=== PATIENT | male | born 1945 | race Caucasian/White ===

== ENCOUNTER 2016-12-16 13:25 | Emergency (ER) | payer MEDICARE ==
[2016-12-16] MEDS ORDERED: ASPIRIN 81 MG CHEWABLE TABLET PO ONE (13:28)
[2016-12-16] MEDS ORDERED: 0.9 % SODIUM CHLORIDE 1,000 ML BAG IV ONE (13:30)
[2016-12-16] MEDS ORDERED: MAGNESIUM HYDROXIDE/AL HYDROX 10 ML, LIDOCAINE VISC 2% 200 MG, PHENOBARB/HYOSCY/ATROPIN... PO ONE ×3 (13:30)
--- NOTE | 2016-12-16 13:38 | Emergency Department Record ---
History of Present Illness - General Chief Complaint: Abdominal Pain Stated Complaint: CHEST AND BACK PAIN Time Seen by Provider: 12/16/16 13:27 Source: Patient Mode of Arrival: Ambulatory - History of Present Illness Initial Comments: epigastric abdominal pain and History of blood clots and on coumadin. Eating makes the epigastic pain worse and everynight for two week pain in the abdomin. CT of abd done at [facility] 2 weeks ago neg per patient. Patient has a history of vasquez's esophagitis. EGD scheduled for jun [address] Chirinos. The GI cocktail helped his pain. MD Complaint: Abdominal pain Onset/Timin -: Week(s) Location: Epigastric Radiation: Back Migration to: Other Severity: Mild Quality: Aching Consistency: Constant, Intermittent Improves With: Nothing Worsens With: Nothing Associated Symptoms: Diarrhea - Related Data Home Medications Medication Instructions Recorded Confirmed Last Taken Atenolol [Atenolol] 50 mg PO DAILY 10/15/15 12/16/16 12/16/16 Fluoxetine HCl [Fluoxetine HCl] 40 mg PO DAILY 10/15/15 12/16/16 12/16/16 Omeprazole [Prilosec] 20 mg PO DAILY 10/15/15 12/16/16 12/16/16 Warfarin Sodium [Coumadin] 2 mg PO DAILY 12/16/16 12/16/16 12/16/16 Allergies Allergy/AdvReac Type Severity Reaction Status Date / Time Iodine and Iodide Containing Allergy HYPERSENSIT Verified 12/16/16 13:35 Produc IVITY Travel Screening - Travel/Exposure Within Last 30 Days Have you traveled within the last 30 days?: No Review of Systems Reviewed: No additional complaints except as noted below Constitutional: Reports: As per HPI. Denies: Chills, Fever, Malaise, Night sweats, Weakness, Weight change Eyes: Reports: As per HPI. Denies: Eye discharge, Eye pain, Photophobia, Vision change ENT: Reports: As per HPI. Denies: Congestion, Dental pain, Ear pain, Epistaxis , Hearing loss, Throat pain Respiratory: Reports: As per HPI. Denies: Cough, Dyspnea, Hemoptysis, Stridor, Wheezes Cardiovascular: Reports: As per HPI. Denies: Arrhythmia, Chest pain, Dyspnea on exertion, Edema, Murmurs, Orthopnea, Palpitations, Paroxysmal nocturnal dyspnea, Rheumatic Fever, Syncope Endocrine: Reports: As per HPI. Denies: Fatigue, Heat or cold intolerance, Polydipsia, Polyuria Gastrointestinal: Reports: As per HPI, Abdominal pain. Denies: Constipation, Diarrhea, Hematemesis, Hematochezia, Melena, Nausea, Vomiting Genitourinary: Reports: As per HPI. Denies: Dysuria, Frequency, Hematuria, Incontinence, Retention, Testicular pain, Testicular mass, Urgency Musculoskeletal: Reports: As per HPI. Denies: Arthralgia, Back pain, Gout, Joint swelling, Myalgia, Neck pain Skin: Reports: As per HPI. Denies: Bruising, Change in color, Change in hair/ nails, Lesions, Pruritus, Rash Neurological: Reports: As per HPI. Denies: Abnormal gait, Confusion, Headache, Numbness, Paresthesias, Seizure, Tingling, Tremors, Vertigo, Weakness Psychiatric: Reports: As per HPI. Denies: Anxiety, Auditory hallucinations, Depression, Homicidal thoughts, Suicidal thoughts, Visual hallucinations Hematological/Lymphatic: Reports: As per HPI. Denies: Anemia, Blood Clots, Easy bleeding, Easy bruising, Swollen glands Past Medical History - SOCIAL HISTORY Smoking Status: Former smoker Alcohol Use: Rare Drug Use: None - RESPIRATORY Hx Respiratory Disorders: Yes Hx Pulmonary Embolism: Yes - CARDIOVASCULAR Hx Cardio Disorders: Yes Hx Deep Vein Thrombosis: Yes Hx Hypertension: Yes Comment:: PVD - NEURO Hx Neuro Disorders: No - GI Hx GI Disorders: Yes Hx Reflux: Yes Hx Hiatal Hernia: Yes Comment:: barretts disease - Hx Genitourinary Disorders: No - ENDOCRINE Hx Endocrine Disorders: No - MUSCULOSKELETAL Hx Musculoskeletal Disorders: Yes Hx Back Injury: Yes - PSYCH Hx Psych Problems: Yes Hx Depression: Yes - HEMATOLOGY/ONCOLOGY Hx Hematology/Oncology Disorders: Yes Hx Clotting Problems: Yes (frequent blood clots) Family Medical History Any Significant Family History?: Yes Hx Cancer: Father Hx Heart Disease: Mother, Brother/Sister Physical Exam - General General Appearance: Alert, Oriented x3, Cooperative, No acute distress - Head Head exam: Normal inspection - Eye Eye exam: Normal appearance, PERRL Pupils: Normal accommodation - ENT ENT exam: Normal exam, Mucous membranes moist, Normal external ear exam, Normal orophraynx, TM's normal bilaterally Ear exam: Normal external inspection. negative: External canal tenderness Nasal Exam: Normal inspection. negative: Discharge, Sinus tenderness Mouth exam: Normal external inspection, Tongue normal Teeth exam: Normal inspection. negative: Dental caries Throat exam: Normal inspection. negative: Tonsillar erythema, Tonsillar exudate - Neck Neck exam: Normal inspection, Full ROM. negative: Tenderness - Respiratory Respiratory exam: Normal lung sounds bilaterally. negative: Respiratory distress - Cardiovascular Cardiovascular Exam: Regular rate, Normal rhythm, Normal heart sounds - GI/Abdominal GI/Abdominal exam: Soft, Normal bowel sounds. negative: Tenderness - Rectal Rectal exam: Deferred - exam: Deferred - Extremities Extremities exam: Normal inspection, Full ROM, Normal capillary refill. negative: Tenderness - Back Back exam: Reports: Normal inspection, Full ROM. Denies: Muscle spasm, Rash noted, Tenderness - Neurological Neurological exam: Alert, Normal gait, Oriented X3, Reflexes normal - Psychiatric Psychiatric exam: Normal affect, Normal mood - Skin Skin exam: Dry, Intact, Normal color, Warm Course Vital Signs 12/16/16 13:27 Temperature 97.8 F Pulse Rate 60 Respiratory 20 Rate Blood Pressure 169/91 Pulse Ox 97 Medical Decision Making - Data Complexity MDM Data: EKG Ordered and/or Reviewed (nO ACUTE CHANGES, SAME PREVIOUS) - Lab Data Result diagrams: 12/16/16 13:34 12/16/16 13:34 Disposition Forms: Patient Portal Access
[2016-12-16 13:42] LABS: BASO % 0.1 % (0-6); EOS % 1.9 % (0-6); GRAN % 61.8 % (47-80); HEMATOCRIT 43.6 % (42.0-52.0); HEMOGLOBIN 14.7 gm/dl (14.0-18.0); LYMPH % 26.7 % (16-45); MEAN CORPUSCULAR HEMOGLOBIN 30.7 pg (27-33); MEAN CORPUSCULAR HGB CONC 33.7 g/dl (32-36); MEAN PLATELET VOLUME 10.4 fl (7.4-10.4); MONO % 9.5 % (0-9); PLATELET COUNT 264 K/uL (130-400); RED BLOOD COUNT 4.79 M/uL (4.40-5.70); RED CELL DISTRIBUTION WIDTH 12.1 % (11.5-14.5); WHITE BLOOD COUNT W/O DIFF 6.9 K/uL (4.2-12.2)
[2016-12-16 14:00] LABS: ALBUMIN 4.2 gm/dL (3.5-5.0); BILIRUBIN,TOTAL 0.9 mg/dL (0.2-1.3); TOTAL PROTEIN 7.3 gm/dL (6.3-8.2)
[2016-12-16 14:09] LABS: INR 2.3
[2016-12-16 14:17] LABS: ANION GAP 11.4 (7-16); BLOOD UREA NITROGEN 18 mg/dL (9-20); CARBON DIOXIDE 26.6 mmol/L (22-30); CREATININE 0.9 mg/dL (0.66-1.25); EST GLOMERULAR FILTRATION RATE > 60 ml/min; GLUCOSE,RANDOM 82 mg/dL (70-110)
[2016-12-16 14:29] LABS: CKMB 1.4 ug/L (0-6)
--- NOTE | 2016-12-16 14:30 | Emergency Department Record ---
History of Present Illness - General Chief Complaint: Abdominal Pain Stated Complaint: CHEST AND BACK PAIN Time Seen by Provider: 12/16/16 13:27 Source: Patient Mode of Arrival: Ambulatory - History of Present Illness MD Complaint: Abdominal pain Onset/Timin -: Week(s) Location: Epigastric Radiation: Back Migration to: Other Severity: Mild Quality: Aching Consistency: Constant, Intermittent Improves With: Nothing Worsens With: Nothing Associated Symptoms: Diarrhea - Related Data Home Medications Medication Instructions Recorded Confirmed Last Taken Atenolol [Atenolol] 50 mg PO DAILY 10/15/15 12/16/16 12/16/16 Fluoxetine HCl [Fluoxetine HCl] 40 mg PO DAILY 10/15/15 12/16/16 12/16/16 Omeprazole [Prilosec] 20 mg PO DAILY 10/15/15 12/16/16 12/16/16 Warfarin Sodium [Coumadin] 2 mg PO DAILY 12/16/16 12/16/16 12/16/16 Previous Rx's Medication Instructions Recorded Sucralfate [Carafate] 1 g PO QID #200 [facility] [place] 12/16/16 Allergies Allergy/AdvReac Type Severity Reaction Status Date / Time Iodine and Iodide Containing Allergy HYPERSENSIT Verified 12/16/16 13:35 Produc IVITY Travel Screening - Travel/Exposure Within Last 30 Days Have you traveled within the last 30 days?: No Review of Systems Constitutional: Reports: As per HPI. Denies: Chills, Fever, Malaise, Night sweats, Weakness, Weight change Eyes: Reports: As per HPI. Denies: Eye discharge, Eye pain, Photophobia, Vision change ENT: Reports: As per HPI. Denies: Congestion, Dental pain, Ear pain, Epistaxis , Hearing loss, Throat pain Respiratory: Reports: As per HPI. Denies: Cough, Dyspnea, Hemoptysis, Stridor, Wheezes Cardiovascular: Reports: As per HPI. Denies: Arrhythmia, Chest pain, Dyspnea on exertion, Edema, Murmurs, Orthopnea, Palpitations, Paroxysmal nocturnal dyspnea, Rheumatic Fever, Syncope Endocrine: Reports: As per HPI. Denies: Fatigue, Heat or cold intolerance, Polydipsia, Polyuria Gastrointestinal: Reports: As per HPI, Abdominal pain. Denies: Constipation, Diarrhea, Hematemesis, Hematochezia, Melena, Nausea, Vomiting Genitourinary: Reports: As per HPI. Denies: Dysuria, Frequency, Hematuria, Incontinence, Retention, Testicular pain, Testicular mass, Urgency Musculoskeletal: Reports: As per HPI. Denies: Arthralgia, Back pain, Gout, Joint swelling, Myalgia, Neck pain Skin: Reports: As per HPI. Denies: Bruising, Change in color, Change in hair/ nails, Lesions, Pruritus, Rash Neurological: Reports: As per HPI. Denies: Abnormal gait, Confusion, Headache, Numbness, Paresthesias, Seizure, Tingling, Tremors, Vertigo, Weakness Psychiatric: Reports: As per HPI. Denies: Anxiety, Auditory hallucinations, Depression, Homicidal thoughts, Suicidal thoughts, Visual hallucinations Hematological/Lymphatic: Reports: As per HPI. Denies: Anemia, Blood Clots, Easy bleeding, Easy bruising, Swollen glands Past Medical History - SOCIAL HISTORY Smoking Status: Former smoker Alcohol Use: Rare Drug Use: None - RESPIRATORY Hx Respiratory Disorders: Yes Hx Pulmonary Embolism: Yes - CARDIOVASCULAR Hx Cardio Disorders: Yes Hx Deep Vein Thrombosis: Yes Hx Hypertension: Yes Comment:: PVD - NEURO Hx Neuro Disorders: No - GI Hx GI Disorders: Yes Hx Reflux: Yes Hx Hiatal Hernia: Yes Comment:: barretts disease - Hx Genitourinary Disorders: No - ENDOCRINE Hx Endocrine Disorders: No - MUSCULOSKELETAL Hx Musculoskeletal Disorders: Yes Hx Back Injury: Yes - PSYCH Hx Psych Problems: Yes Hx Depression: Yes - HEMATOLOGY/ONCOLOGY Hx Hematology/Oncology Disorders: Yes Hx Clotting Problems: Yes (frequent blood clots) Family Medical History Any Significant Family History?: Yes Hx Cancer: Father Hx Heart Disease: Mother, Brother/Sister Physical Exam - General General Appearance: Alert, Oriented x3, Cooperative, No acute distress - Head Head exam: Normal inspection - Eye Eye exam: Normal appearance, PERRL Pupils: Normal accommodation - ENT ENT exam: Normal exam, Mucous membranes moist, Normal external ear exam, Normal orophraynx, TM's normal bilaterally Ear exam: Normal external inspection. negative: External canal tenderness Nasal Exam: Normal inspection. negative: Discharge, Sinus tenderness Mouth exam: Normal external inspection, Tongue normal Teeth exam: Normal inspection. negative: Dental caries Throat exam: Normal inspection. negative: Tonsillar erythema, Tonsillar exudate - Neck Neck exam: Normal inspection, Full ROM. negative: Tenderness - Respiratory Respiratory exam: Normal lung sounds bilaterally. negative: Respiratory distress - Cardiovascular Cardiovascular Exam: Regular rate, Normal rhythm, Normal heart sounds - GI/Abdominal GI/Abdominal exam: Soft, Normal bowel sounds, Tenderness (epigastric pain) - Rectal Rectal exam: Deferred - exam: Deferred - Extremities Extremities exam: Normal inspection, Full ROM, Normal capillary refill. negative: Tenderness - Back Back exam: Reports: Normal inspection, Full ROM. Denies: Muscle spasm, Rash noted, Tenderness - Neurological Neurological exam: Alert, Normal gait, Oriented X3, Reflexes normal - Psychiatric Psychiatric exam: Normal affect, Normal mood - Skin Skin exam: Dry, Intact, Normal color, Warm Course Vital Signs 12/16/16 13:27 Temperature 97.8 F Pulse Rate 60 Respiratory 20 Rate Blood Pressure 169/91 Pulse Ox 97 Medical Decision Making - Data Complexity MDM Data: Labs Ordered and/or Reviewed, EKG Ordered and/or Reviewed (No acute changes) - Lab Data Result diagrams: 12/16/16 13:34 12/16/16 13:34 Lab Results 12/16/16 12/16/16 12/16/16 Range/Units 13:34 13:34 13:34 WBC 6.9 (4.2-12.2) K/uL RBC 4.79 (4.40-5.70) M/uL Hgb 14.7 (14.0-18.0) gm/dl Hct 43.6 (42.0-52.0) % MCV 91.0 (81-97) fl MCH 30.7 (27-33) pg MCHC 33.7 (32-36) g/dl RDW 12.1 (11.5-14.5) % Plt Count 264 (130-400) K/uL MPV 10.4 (7.4-10.4) fl Gran % 61.8 (47-80) % Lymphocytes % 26.7 (16-45) % Monocytes % 9.5 H (0-9) % Eosinophils % 1.9 (0-6) % Basophils % 0.1 (0-6) % PT (9.5-12.1) SECONDS INR PTT 33.10 (24.5-39.1) SECONDS Sodium 139 (136-145) mmol/L Potassium 4.3 (3.5-5.1) mmol/L Chloride 101 (98-107) mmol/L Carbon Dioxide 26.6 (22-30) mmol/L Anion Gap 11.4 (7-16) BUN 18 (9-20) mg/dL Creatinine 0.9 (0.66-1.25) mg/dL Estimated GFR > 60 ml/min Random Glucose 82 (70-110) mg/dL Calcium 8.8 (8.5-10.1) mg/dL Total Bilirubin (0.2-1.3) mg/dL Direct Bilirubin (0-0.3) mg/dL AST (17-59) U/L ALT (21-72) U/L Alkaline Phosphatase (38-126) U/L Total Protein (6.3-8.2) gm/dL Albumin (3.5-5.0) gm/dL Lipase (23-300) U/L 12/16/16 12/16/16 Range/Units 13:34 13:35 WBC (4.2-12.2) K/uL RBC (4.40-5.70) M/uL Hgb (14.0-18.0) gm/dl Hct (42.0-52.0) % MCV (81-97) fl MCH (27-33) pg MCHC (32-36) g/dl RDW (11.5-14.5) % Plt Count (130-400) K/uL MPV (7.4-10.4) fl Gran % (47-80) % Lymphocytes % (16-45) % Monocytes % (0-9) % Eosinophils % (0-6) % Basophils % (0-6) % PT 26.0 H (9.5-12.1) SECONDS INR 2.30 PTT (24.5-39.1) SECONDS Sodium (136-145) mmol/L Potassium (3.5-5.1) mmol/L Chloride (98-107) mmol/L Carbon Dioxide (22-30) mmol/L Anion Gap (7-16) BUN (9-20) mg/dL Creatinine (0.66-1.25) mg/dL Estimated GFR ml/min Random Glucose (70-110) mg/dL Calcium (8.5-10.1) mg/dL Total Bilirubin 0.90 (0.2-1.3) mg/dL Direct Bilirubin 0.0 (0-0.3) mg/dL AST 20 (17-59) U/L ALT 26 (21-72) U/L Alkaline Phosphatase 68 (38-126) U/L Total Protein 7.3 (6.3-8.2) gm/dL Albumin 4.2 (3.5-5.0) gm/dL Lipase 147 (23-300) U/L Disposition Clinical Impression: Gastritis, Esophagitis Disposition: Home, Self-Care Condition: (1) Good Instructions: Gastritis (ED) Additional Instructions: follow up with Dr. rebecca palomo 2 tablespoon after meals and at bedtime Prescriptions: Sucralfate [Carafate] 1 g PO QID #200 [facility] Forms: Patient Portal Access Time of Disposition: 14:30
[2016-12-16 14:31] LABS: TROPONIN I < 0.012 ng/mL (0.00-0.034)
== END 2016-12-16 14:49 | disposition home or self-care (01) ==
LOC: ER 13:25
DX: K20.9 Esophagitis, unspecified (principal); K22.70 Barrett's esophagus without dysplasia; R19.7 Diarrhea, unspecified; R07.9 Chest pain, unspecified; I10 Essential (primary) hypertension; Z86.718 Personal history of other venous thrombosis and embolism; Z79.01 Long term (current) use of anticoagulants; Z87.891 Personal history of nicotine dependence
CPT/HCPCS: 99284 ×2; 96360; 83690; 85025; 85730; 85610; 80076; 82553; 84484; 80048; 93005; 93010; J3490; J7030

== ENCOUNTER 2017-02-07 11:06 | Emergency (ER) | payer MEDICARE ==
--- NOTE | 2017-02-07 11:31 | Emergency Department Record ---
History of Present Illness - General Chief complaint: Male Urogenital Problem Stated complaint: BLOOD IN URINE Time Seen by Provider: 02/07/17 11:28 Source: Patient Mode of Arrival: Ambulatory - History of Present Illness Initial comments: 72 yo male presents to ED with a CC of hematuria that began around 19:00 last night. Patient denies any dysuria symptoms, denies any injury. Patient reports that he is on warfarin for previous DVT/PE, last level 4 days ago was 3.5. Patient denies excess bruising or bleeding gums. MD Complaint: Other (hematuria) Onset/Timin -: Hour(s) Radiation: None Consistency: Intermittent Improves with: None Worsens with: None Other Reports: Blood in urine - Related Data Home Medications Medication Instructions Recorded Confirmed Last Taken Atenolol [Atenolol] 50 mg PO DAILY 10/15/15 02/07/17 02/07/17 Fluoxetine HCl [Fluoxetine HCl] 40 mg PO DAILY 10/15/15 02/07/17 02/07/17 Omeprazole [Prilosec] 40 mg PO DAILY 10/15/15 02/07/17 02/07/17 Warfarin Sodium [Coumadin] 2 mg PO DAILY 12/16/16 02/07/17 02/07/17 Previous Rx's Medication Instructions Recorded Sucralfate [Carafate] 1 g PO QID #200 [facility] 12/16/16 Cephalexin [Keflex] 500 mg PO TID #21 cap 02/07/17 Allergies Allergy/AdvReac Type Severity Reaction Status Date / Time Iodine and Iodide Containing Allergy HYPERSENSIT Verified 02/07/17 11:10 Produc IVITY Travel Screening - Travel/Exposure Within Last 30 Days Have you traveled within the last 30 days?: No - Travel/Exposure Within Last Year Have you traveled outside the [place] in the last year?: No - Additonal Travel Details Have you been exposed to anyone with a communicable illness?: No - Travel Symptoms Symptom Screening: None Review of Systems Constitutional: Denies: Chills, Fever, Malaise, Night sweats Eyes: Denies: Eye discharge, Eye pain ENT: Denies: Congestion, Ear pain Respiratory: Denies: Cough, Dyspnea Cardiovascular: Denies: Chest pain, Dyspnea on exertion, Palpitations Endocrine: Denies: Fatigue, Heat or cold intolerance Gastrointestinal: Denies: Abdominal pain, Nausea, Vomiting Genitourinary: Denies: Incontinence, Retention Musculoskeletal: Denies: Arthralgia, Back pain, Gout, Joint swelling Skin: Denies: Bruising, Change in color Neurological: Denies: Abnormal gait, Confusion, Headache, Seizure Psychiatric: Denies: Anxiety Hematological/Lymphatic: Reports: Blood Clots, Easy bleeding. Denies: Anemia Past Medical History - SOCIAL HISTORY Smoking Status: Former smoker Alcohol Use: Occassional Drug Use: None - RESPIRATORY Hx Respiratory Disorders: Yes Hx Pulmonary Embolism: Yes - CARDIOVASCULAR Hx Cardio Disorders: Yes Hx Deep Vein Thrombosis: Yes Hx Hypertension: Yes Comment:: PVD - NEURO Hx Neuro Disorders: No - GI Hx GI Disorders: Yes Hx Reflux: Yes Hx Hiatal Hernia: Yes Comment:: barretts disease - Hx Genitourinary Disorders: No - ENDOCRINE Hx Endocrine Disorders: No - MUSCULOSKELETAL Hx Musculoskeletal Disorders: Yes Hx Back Injury: Yes - PSYCH Hx Psych Problems: Yes Hx Depression: Yes - HEMATOLOGY/ONCOLOGY Hx Hematology/Oncology Disorders: Yes Hx Clotting Problems: Yes (frequent blood clots) Family Medical History Any Significant Family History?: Yes Hx Cancer: Father Hx Heart Disease: Mother, Brother/Sister Physical Exam - General General Appearance: Alert, Oriented x3, Cooperative, No acute distress Limitations: No limitations - Head Head exam: Atraumatic, Normocephalic, Normal inspection Head exam detail: negative: Abrasion, Contusion, Boland's sign, General tenderness, Hematoma, Laceration - Eye Eye exam: Normal appearance. negative: Conjunctival injection, Periorbital swelling, Periorbital tenderness, Scleral icterus - ENT Ear exam: negative: Auricular hematoma, Auricular trauma Nasal Exam: negative: Active bleeding, Discharge, Dried blood, Foreign body Mouth exam: negative: Drooling, Laceration, Muffled voice, Tongue elevation - Neck Neck exam: Normal inspection. negative: Meningismus, Tenderness - Respiratory Respiratory exam: Normal lung sounds bilaterally. negative: Rales, Respiratory distress, Rhonchi, Stridor - Cardiovascular Cardiovascular Exam: Regular rate, Normal rhythm, Normal heart sounds - GI/Abdominal GI/Abdominal exam: Soft. negative: Rebound, Rigid, Tenderness - Rectal Rectal exam: Deferred - exam: Deferred - Extremities Extremities exam: Normal inspection. negative: Calf tenderness, Pedal edema, Tenderness - Back Back exam: Denies: CVA tenderness (R), CVA tenderness (L) - Neurological Neurological exam: Alert, Normal gait, Oriented X3 - Psychiatric Psychiatric exam: Normal affect, Normal mood - Skin Skin exam: Normal color. negative: Abrasion Type of lesion: negative: abrasion Course Vital Signs 02/07/17 11:14 Pulse Rate 58 L Respiratory 16 Rate Pulse Ox 98 - Reevaluation(s) Reevaluation #1: 02/07/17 12:17 Labs reviewed, INR 3.08, UA reveals 1+ Bacteria, 3-5 WBCs, and >50 RBCs. Labs are otherwise grossly unremarkable for an acute process. Patient's Hgb stable, will prescribe Keflex for possible small UTI resulting in possible hematuria with instructions to follow-up with his PCP in 1-3 days as directed. Patient denies any flank or back pain symptoms, no clinical evidence for ureteral calculi on history or examination. Patient was updated on all results and appears stable for discharge at this time. Medical Decision Making - Lab Data Result diagrams: 02/07/17 11:49 02/07/17 11:49 Disposition Disposition: Discharge Clinical Impression: Hematuria, Warfarin-induced coagulopathy UTI (urinary tract infection) Qualifiers: Urinary tract infection type: acute cystitis Hematuria presence: with hematuria Qualified Code(s): N30.01 - Acute cystitis with hematuria Disposition: Home, Self-Care Condition: (2) Stable Instructions: Acute Hematuria (ED) Additional Instructions: Return to ED if your symptoms worsen or if you have any concerns. Keflex as directed. Follow-up with your family doctor in 1-3 days for re-evaluation of your hematuria symptoms. Prescriptions: Cephalexin [Keflex] 500 mg PO TID #21 cap Forms: Patient Portal Access Time of Disposition: 12:22
[2017-02-07 11:58] LABS: BASO % 0.5 % (0-6); EOS % 1.8 % (0-6); GRAN % 62.5 % (47-80); HEMATOCRIT 43.9 % (42.0-52.0); HEMOGLOBIN 14.5 gm/dl (14.0-18.0); LYMPH % 27.4 % (16-45); MEAN CELL VOLUME 90.5 fl (81-97); MEAN CORPUSCULAR HEMOGLOBIN 29.9 pg (27-33); MEAN PLATELET VOLUME 10.7 fl (7.4-10.4); MONO % 7.8 % (0-9); PLATELET COUNT 299 K/uL (130-400); RED BLOOD COUNT 4.85 M/uL (4.40-5.70); RED CELL DISTRIBUTION WIDTH 12.2 % (11.5-14.5); WHITE BLOOD COUNT W/O DIFF 5.5 K/uL (4.2-12.2)
[2017-02-07 12:03] LABS: URINE APPEARANCE SL CLOUDY; URINE BILIRUBIN NEGATIVE (NEGATIVE); URINE BLOOD LARGE (NEGATIVE); URINE COLOR RED; URINE GLUCOSE (UA) NEGATIVE (NEGATIVE); URINE KETONE TRACE (NEGATIVE); URINE LEUKOCYTE ESTERASE TRACE (NEGATIVE); URINE NITRITE POSITIVE (NEGATIVE)
[2017-02-07 12:07] LABS: ALB/GLOB RATIO 1.3 (1.1-1.8); ALBUMIN 4.4 gm/dL (3.5-5.0); ALKALINE PHOSPHATASE 89 U/L (38-126); ALT/SGPT 34 U/L (21-72); AST/SGOT 27 U/L (17-59); BILIRUBIN,TOTAL 0.68 mg/dL (0.2-1.3); BLOOD UREA NITROGEN 28 mg/dL (9-20); CREATININE 0.9 mg/dL (0.66-1.25); EST GLOMERULAR FILTRATION RATE > 60 ml/min; GLUCOSE,RANDOM 116 mg/dL (70-110); INR 3.08; PROTHROMBIN TIME (PATIENT) 34.8 SECONDS (9.5-12.1); TOTAL PROTEIN 7.7 gm/dL (6.3-8.2)
[2017-02-07 12:13] LABS: URINE RBC >50 (NONE SEEN)
[2017-02-07 12:14] LABS: URINE BACTERIA 1+; URINE EPITHELIAL CELLS 0 - 2 (FEW)
== END 2017-02-07 12:31 | disposition home or self-care (01) ==
LOC: ER 11:06
DX: D68.32 Hemorrhagic disorder due to extrinsic circulating anticoagulants (principal); N30.01 Acute cystitis with hematuria; T45.515A Adverse effect of anticoagulants, initial encounter; I10 Essential (primary) hypertension; Z87.891 Personal history of nicotine dependence; Z86.711 Personal history of pulmonary embolism
CPT/HCPCS: 80053; 81001; 85025; 85610; 99283

== ENCOUNTER 2017-04-01 23:10 | Emergency (ER) | payer MEDICARE ==
[2017-04-01] MEDS ORDERED: ACETAMINOPHEN 1,000 MG/100 ML BTL IVPB ONE (23:16)
[2017-04-01] MEDS ORDERED: LIDOCAINE 5% PATCH TOP ONE (23:21)
--- NOTE | 2017-04-01 23:22 | Emergency Department Record ---
History of Present Illness - General Chief Complaint: Fall Injury Source: Patient, Family Mode of Arrival: Ambulatory Limitations: No limitations - History of Present Illness Initial Comments: 72 yo male presents with right mid upper rib pain. At about 8:30pm he was golfing and lost his balance on uneven green and fell. He complains of right upper rib pain, right thigh pain, and right knee abrasion. No head injury but he is on Coumadin. No abdominal pain. No back pain. MD Complaint: Fall -: Hour(s) (3) Fall From: Other (uneven green at a golf course) When Fall Occurred: 1-3 hours PATTERN HAND Fall Witnessed: Yes, by bystander Place Fall Occurred: Other (Golf course) Loss of Consciousness: None Prolonged Down Time?: No Symptoms Prior to Fall: None Location: Other (right ribs, right upper leg) Location - Extremities: Right: Thigh Severity: Moderate Quality: Aching Associated Symptoms: Denies - [place] Coma Scale Eye Response: (4) Open spontaneously Motor Response: (6) Obeys commands Verbal Response: (5) Oriented [place] Total: 15 - Related Data Home Medications Medication Instructions Recorded Confirmed Last Taken Atenolol [Atenolol] 50 mg PO DAILY 10/15/15 02/07/17 02/07/17 Fluoxetine HCl [Fluoxetine HCl] 40 mg PO DAILY 10/15/15 02/07/17 02/07/17 Omeprazole [Prilosec] 40 mg PO DAILY 10/15/15 02/07/17 02/07/17 Warfarin Sodium [Coumadin] 2 mg PO DAILY 12/16/16 02/07/17 02/07/17 Previous Rx's Medication Instructions Recorded Sucralfate [Carafate] 1 g PO QID #200 udc 12/16/16 Cephalexin [Keflex] 500 mg PO TID #21 cap 02/07/17 Hydrocodone/Acetaminophen [[place] 1 tab PO Q6H PRN #25 tab 04/02/17 5mg/325mg] Lidocaine Patch [Lidoderm] 1 ea TOP Q12H #14 patch 04/02/17 Allergies Allergy/AdvReac Type Severity Reaction Status Date / Time Iodine and Iodide Containing Allergy HYPERSENSIT Verified 02/07/17 11:10 Produc IVITY meperidine [From Demerol] Allergy PT UNSURE Verified 04/01/17 23:17 OF REACTION morphine Allergy PT UNSURE Verified 04/01/17 23:16 OF REACTION Review of Systems Constitutional: Denies: Chills, Fever, Malaise, Weakness Eyes: Denies: Eye discharge, Eye pain, Photophobia, Vision change ENT: Denies: Congestion, Throat pain Respiratory: Denies: Cough, Dyspnea, Hemoptysis, Stridor, Wheezes Cardiovascular: Reports: Chest pain (right ribs). Denies: Syncope Endocrine: Denies: Fatigue Gastrointestinal: Denies: Abdominal pain, Diarrhea, Nausea, Vomiting Genitourinary: Denies: Hematuria, Urgency Musculoskeletal: Reports: As per HPI, Myalgia. Denies: Arthralgia, Back pain, Joint swelling, Neck pain Skin: Reports: As per HPI, Bruising. Denies: Change in color Neurological: Denies: Headache Psychiatric: Denies: Anxiety Hematological/Lymphatic: Denies: Blood Clots, Easy bleeding, Easy bruising, Swollen glands Past Medical History - SOCIAL HISTORY Smoking Status: Former smoker Drug Use: None - RESPIRATORY Hx Respiratory Disorders: Yes Hx Pulmonary Embolism: Yes - CARDIOVASCULAR Hx Cardio Disorders: Yes Hx Deep Vein Thrombosis: Yes Hx Hypertension: Yes Comment:: PVD - NEURO Hx Neuro Disorders: No - GI Hx GI Disorders: Yes Hx Reflux: Yes Hx Hiatal Hernia: Yes Comment:: barretts disease - Hx Genitourinary Disorders: No - ENDOCRINE Hx Endocrine Disorders: No - MUSCULOSKELETAL Hx Musculoskeletal Disorders: Yes Hx Back Injury: Yes - PSYCH Hx Psych Problems: Yes Hx Depression: Yes - HEMATOLOGY/ONCOLOGY Hx Hematology/Oncology Disorders: Yes Hx Clotting Problems: Yes (frequent blood clots) Family Medical History Hx Cancer: Father Hx Heart Disease: Mother, Brother/Sister Physical Exam - General General Appearance: Alert, Oriented x3, Cooperative, No acute distress Limitations: No limitations - Head Head exam: Atraumatic, Normocephalic, Normal inspection Head exam detail: negative: Abrasion, Contusion, Hematoma, Laceration - Eye Eye exam: Normal appearance. negative: Conjunctival injection, Periorbital swelling - ENT ENT exam: Normal exam, Mucous membranes moist Ear exam: Normal external inspection Nasal Exam: Normal inspection Mouth exam: Normal external inspection Teeth exam: Normal inspection - Neck Neck exam: Normal inspection, Full ROM. negative: Meningismus, Tenderness - Respiratory Respiratory exam: Normal lung sounds bilaterally, Chest wall tenderness (tender mid to upper right), Other (Pain movement, mild if still). negative: Accessory muscle use, Decreased breath sounds, Prolonged expiratory, Rales, Respiratory distress, Rhonchi, Stridor, Wheezes - Cardiovascular Cardiovascular Exam: Regular rate, Normal rhythm, Normal heart sounds - GI/Abdominal GI/Abdominal exam: Soft, Other (No abdominal tenderness, no RUQ tenderness). negative: Distended, Guarding, Rigid, Tenderness - Rectal Rectal exam: Deferred - exam: Deferred - Extremities Extremities exam: Full ROM, Normal capillary refill, Tenderness (Small contusion right mid to distal lateral thigh). negative: Normal inspection, Calf tenderness Image of Full Body: 1 - tender to palpation, no deformity or SQ air, no RUQ tenderness to deep palpation 2 - small hematorma, soft, (weight bears without pain) 3 - abrasion - Back Back exam: Reports: Normal inspection, Full ROM. Denies: CVA tenderness (R), CVA tenderness (L), Muscle spasm, Paraspinal tenderness, Rash noted, Tenderness , Vertebral tenderness - Neurological Neurological exam: Alert, Normal gait, Oriented X3, Reflexes normal - Psychiatric Psychiatric exam: Normal affect, Normal mood. negative: Agitated, Anxious - Skin Skin exam: Dry, Intact, Normal color, Warm. negative: Cyanosis, Diaphoretic, Erythema, Mottled Course - Reevaluation(s) Reevaluation #1: CT of the brain was normal per [facility] CT of the chest was negative for evidence of acute injury. No displaced rib fractures CT scan of the Cervical spine no fracture, straightening noted, degenerative changes C4-C5-C6 04/02/17 00:06 Reevaluation #2: INR is 2.15 CR is 1.5 The patient was informed to hydrate and recheck the renal labs with his doctor in the next week 04/02/17 00:20 Reevaluation #3: We discussed the results and reasons to return to the ED At this time room air biox is 100%, HR 62, BP 123/84 04/02/17 00:28 Medical Decision Making - Lab Data Result diagrams: 04/01/17 23:25 04/01/17 23:25 Disposition Disposition: Discharge Clinical Impression: Contusion of rib on right side Qualifiers: Encounter type: initial encounter Qualified Code(s): S20.211A - Contusion of right front wall of thorax, initial encounter Hematoma of right thigh Qualifiers: Encounter type: initial encounter Qualified Code(s): S70.11XA - Contusion of right thigh, initial encounter Disposition: Home, Self-Care Condition: (1) Good Instructions: Rib Contusion (ED) Additional Instructions: Ice to the sore areas to minimize swelling Call your doctor for close follow up of the injuries Return if you have shortness of breath, uncontrolled pain levels, any new pains or concerns Prescriptions: Hydrocodone/Acetaminophen [[place] 5mg/325mg] 1 tab PO Q6H PRN #25 tab PRN Reason: Pain - General Lidocaine Patch [Lidoderm] 1 ea TOP Q12H #14 patch Forms: Patient Portal Access Time of Disposition: 00:21
[2017-04-01 23:36] LABS: BASO % 0.2 % (0-6); EOS % 1.7 % (0-6); GRAN % 64.1 % (47-80); HEMATOCRIT 39.4 % (42.0-52.0); HEMOGLOBIN 13.2 gm/dl (14.0-18.0); MEAN CELL VOLUME 90.6 fl (81-97); MEAN CORPUSCULAR HEMOGLOBIN 30.3 pg (27-33); MEAN CORPUSCULAR HGB CONC 33.5 g/dl (32-36); MEAN PLATELET VOLUME 10.7 fl (7.4-10.4); PLATELET COUNT 295 K/uL (130-400); RED BLOOD COUNT 4.35 M/uL (4.40-5.70); RED CELL DISTRIBUTION WIDTH 12.5 % (11.5-14.5); WHITE BLOOD COUNT W/O DIFF 9.8 K/uL (4.2-12.2)
[2017-04-01 23:43] LABS: INR 2.15; PARTIAL THROMBOPLASTIN TIME 31.8 SECONDS (24.5-39.1); PROTHROMBIN TIME (PATIENT) 24.3 SECONDS (9.5-12.1)
[2017-04-01 23:44] LABS: ALB/GLOB RATIO 1.2 (1.1-1.8); ALBUMIN 4.3 gm/dL (3.5-5.0); ANION GAP 7.5 (7-16); BILIRUBIN,TOTAL 0.53 mg/dL (0.2-1.3); CARBON DIOXIDE 26.5 mmol/L (22-30); CREATININE 1.5 mg/dL (0.66-1.25); TOTAL PROTEIN 7.8 gm/dL (6.3-8.2)
[2017-04-02] MEDS ORDERED: HYDROCODONE/APAP 10/325 TABLET PO ONE (00:26)
--- NOTE | 2017-04-04 16:27 | CT SCAN REPORT ---
DATE: 04/02/2017. EXAM: CT SCAN OF THE CERVICAL SPINE. HISTORY: Neck pain. TECHNIQUE: Axial CT images of the cervical spine with coronal and sagittal reconstructions. COMPARISON: None. FINDINGS: Evaluation of the spinal canal contents is limited due to CT technique. However, vertebral body height and alignment are preserved. There is no fracture/compression deformity or subluxation. Diffuse multilevel degenerative change. Limited evaluation of extraspinal anatomic structures is unremarkable. IMPRESSION: NEGATIVE FOR ACUTE CERVICAL SPINE ABNORMALITY. JOB NUMBER: [id number] [facility]
--- NOTE | 2017-04-04 16:31 | CT SCAN REPORT ---
DATE: 04/01/2017. EXAM: CT SCAN OF THE CHEST WITHOUT CONTRAST. HISTORY: Fall. TECHNIQUE: CT of the chest without contrast. COMPARISON: None. FINDINGS: Evaluation of the mediastinum and wendy are limited due to lack of IV contrast. Calcified mediastinal lymph nodes. The heart and pericardium are grossly unremarkable. Limited evaluation of the upper abdomen shows multiple renal cysts. Osseus structures are grossly intact. There is no pneumothorax. The visualized airways are patent. The lungs are clear. IMPRESSION: NEGATIVE FOR ACUTE INTRATHORACIC PROCESS. JOB NUMBER: [id number] [facility]
--- NOTE | 2017-04-04 16:36 | CT SCAN REPORT ---
DATE: 04/01/2017. EXAM: CT SCAN OF THE BRAIN. HISTORY: Fall. TECHNIQUE: CT scan of the brain without contrast. COMPARISON: None. FINDINGS: The globes are intact. The paranasal sinuses and mastoid air cells are unremarkable. No displaced or depressed skull fracture. No intra- or extra -axial hemorrhage. CT is limited for the evaluation of acute infarct. No CT evidence for large or territorial acute infarct. No mass or midline shift. IMPRESSION: NEGATIVE EXAMINATION. JOB NUMBER: [id number] [facility]
== END 2017-04-02 00:52 | disposition home or self-care (01) ==
LOC: ER 23:10
DX: S20.211A Contusion of right front wall of thorax, initial encounter (principal); S70.11XA Contusion of right thigh, initial encounter; T14.8 Other injury of unspecified body region; W18.39XA Other fall on same level, initial encounter; Y93.01 Activity, walking, marching and hiking; Y92.39 Other specified sports and athletic area as the place of occurrence of the external cause; I10 Essential (primary) hypertension
CPT/HCPCS: 99284 ×2; 96374; 85025; 85730; 85610; 80053; 72125; 71250; 70450; J3490

== ENCOUNTER 2019-10-23 12:01 | Emergency (ER) | payer MEDICARE ==
[2019-10-23 13:06] LABS: URINE APPEARANCE CLOUDY; URINE BILIRUBIN SMALL (NEGATIVE); URINE BLOOD LARGE (NEGATIVE); URINE COLOR RED; URINE GLUCOSE (UA) NEGATIVE (NEGATIVE); URINE KETONE NEGATIVE (NEGATIVE); URINE LEUKOCYTE ESTERASE NEGATIVE (NEGATIVE); URINE NITRITE NEGATIVE (NEGATIVE)
[2019-10-23 13:08] LABS: URINE BACTERIA NONE SEEN; URINE EPITHELIAL CELLS NONE SEEN (FEW); URINE WBC NONE SEEN (0-2/hpf)
--- NOTE | 2019-10-23 13:19 | Emergency Department Record ---
History of Present Illness - General Chief complaint: Male Urogenital Problem Stated complaint: PEEING BLOOD Time Seen by Provider: 10/23/19 13:02 Source: Patient Mode of Arrival: Ambulatory Limitations: No limitations - History of Present Illness Initial comments: pt started urinating blood this morning. he is on coumadin. he has had this happen twice before. he has never seen a urologist. he has no pain MD Complaint: Other Onset/Timin -: Days(s) Consistency: Intermittent Improves with: None Worsens with: Urination Reports: Blood in urine - Related Data Previous Rx's Medication Instructions Recorded Sucralfate [Carafate] 1 g PO QID #200 udc 12/16/16 Hydrocodone/Acetaminophen [[place] 1 tab PO Q6H PRN #25 tab 04/02/17 5mg/325mg] Lidocaine Patch [Lidoderm] 1 ea TOP Q12H #14 patch 04/02/17 Allergies Allergy/AdvReac Type Severity Reaction Status Date / Time Iodine and Iodide Containing Allergy HYPERSENSIT Verified 10/23/19 12:49 Produc IVITY meperidine [From Demerol] Allergy PT UNSURE Verified 10/23/19 12:49 OF REACTION morphine Allergy PT UNSURE Verified 10/23/19 12:49 OF REACTION Travel Screening - Travel/Exposure Within Last 30 Days Have you traveled within the last 30 days?: No Past Medical History - SOCIAL HISTORY Smoking Status: Former smoker Alcohol Use: None Drug Use: None - RESPIRATORY Hx Respiratory Disorders: Yes Hx Pulmonary Embolism: Yes - CARDIOVASCULAR Hx Cardio Disorders: Yes Hx Deep Vein Thrombosis: Yes Hx Hypertension: Yes Comment:: PVD - NEURO Hx Neuro Disorders: No - GI Hx GI Disorders: Yes Hx Reflux: Yes Hx Hiatal Hernia: Yes Comment:: barretts disease - Hx Genitourinary Disorders: No - ENDOCRINE Hx Endocrine Disorders: No - MUSCULOSKELETAL Hx Musculoskeletal Disorders: Yes Hx Back Injury: Yes - PSYCH Hx Psych Problems: Yes Hx Depression: Yes - HEMATOLOGY/ONCOLOGY Hx Hematology/Oncology Disorders: Yes Hx Clotting Problems: Yes (frequent blood clots) Family Medical History Any Significant Family History?: Yes Hx Cancer: Father Hx Heart Disease: Mother, Brother/Sister Course Vital Signs 10/23/19 12:46 Temperature 97.5 F L Pulse Rate 57 L Respiratory 20 Rate Blood Pressure 134/83 Pulse Ox 94 L - Reevaluation(s) Reevaluation #1: 10/23/19 17:51 d/w dr wood Medical Decision Making - Lab Data Result diagrams: 10/23/19 13:05 10/23/19 13:05 Lab Results 10/23/19 Range/Units 12:50 Urine Color Red H Urine Appearance Cloudy Urine pH 7.0 (5.0-8.0) Ur Specific [place] 1.020 (1.002-1.030) Urine Protein 100 mg/dl H (NEGATIVE) Urine Glucose (UA) Negative (NEGATIVE) Urine Ketones Negative (NEGATIVE) Urine Blood Large H (NEGATIVE) Urine Nitrite Negative (NEGATIVE) Urine Bilirubin Small H (NEGATIVE) Urine Urobilinogen 1.0 (0.20 - 1.00) E.U./dL Ur Leukocyte Esterase Negative (NEGATIVE) Urine RBC Too numerous to cnt (NONE SEEN) Urine WBC None seen (0-2/hpf) Ur Epithelial Cells None seen (FEW) Urine Bacteria None seen Disposition Disposition: Discharge Clinical Impression: Mass of kidney Hematuria Qualifiers: Hematuria type: unspecified type Qualified Code(s): R31.9 - Hematuria, unspecified Disposition: Home, Self-Care Condition: (1) Good Instructions: Hematuria (ED) Additional Instructions: follow up with dr wood on 10/31. return sooner if worse. Referrals: [facility] [Provider Group] Dane Wood M.D. [MEDICAL DOCTOR] - Forms: Patient Portal Access Quality - Quality Measures Quality Measures: N/A - Blood Pressure Screening Does Patient Have Any of the Following: No Blood Pressure Classification: Pre-Hypertensive BP Reading Systolic Measurement: 134 Diastolic Measurement: 83 Screening for High Blood Pressure: < Pre-Hypertensive BP, F/U Documented > [[id number]] Pre-Hypertensive Follow-up Interventions: Follow-up with rescreen every year.
[2019-10-23 13:23] LABS: ABSOLUTE NEUTROPHIL COUNT 3.14; BASO % 0.5 % (0-6); EOS % 2.7 % (0-6); GRAN % 57.5 % (47-80); HEMATOCRIT 43.3 % (42.0-52.0); HEMOGLOBIN 14.4 gm/dl (14.0-18.0); LYMPH % 29.6 % (16-45); MEAN CELL VOLUME 91.4 fl (81-97); MEAN CORPUSCULAR HEMOGLOBIN 30.4 pg (27-33); MEAN CORPUSCULAR HGB CONC 33.3 g/dl (32-36); MEAN PLATELET VOLUME 10.5 fl (7.4-10.4); MONO % 9.7 % (0-9); PLATELET COUNT 266 K/uL (130-400); RED BLOOD COUNT 4.74 M/uL (4.40-5.70); RED CELL DISTRIBUTION WIDTH 12.7 % (11.5-14.5); WHITE BLOOD COUNT W/O DIFF 5.5 K/uL (4.2-12.2)
[2019-10-23 13:34] LABS: BLOOD UREA NITROGEN 24 mg/dL (8-23); CREATININE 1.1 mg/dL (0.7-1.2); EST GLOMERULAR FILTRATION RATE > 60 mL/min
[2019-10-23 13:36] LABS: INR 2.5; PROTHROMBIN TIME (PATIENT) 24.8 SECONDS (9.5-12.1)
[2019-10-23 13:37] LABS: GLUCOSE,RANDOM 116 mg/dL (74-109)
--- NOTE | 2019-10-23 15:27 | CT SCAN REPORT ---
EXAMINATION: CT Abdomen and Pelvis without IV Contrast EXAM DATE: 10/23/2019 2:52 PM TECHNIQUE: Standard protocol CT imaging of the abdomen and pelvis was performed without intravenous c ontrast. INDICATION: hematuria, right groin pain COMPARISON: None ENCOUNTER: Not applicable CT ABDOMEN AND PELVIS FINDINGS: Lung Bases: Included extent of the lung bases are clear. Hepatobiliary: The liver has a normal size with a smooth surface. Normal gallbladder Pancreas: Fatty atrophy Spleen: The spleen is not enlarged. Adrenals: The adrenal glands are normal. Kidneys, Ureters, & Bladder: Both kidneys have a normal size and morphology. 5 x 2.5 cm probable sept ated cyst upper pole left kidney. 9 Hounsfield units. There is no hydronephrosis. 2.6 mm punctate lianet cification right renal pelvis may represent nonobstructing calculus or renal vascular calcification. Both ureters have a normal course and caliber. Nondistended thick-walled bladder. Gastrointestinal: The stomach and small bowel are normal with no obstruction or inflammation. Normal appendix. The large bowel is within normal limits. Reproductive Organs: Unremarkable Lymphatic System: There is no adenopathy within the abdomen or pelvis. Vasculature: Normal caliber abdominal aorta Peritoneum: No free fluid, free air, or inflammation Abdominal wall & Musculoskeletal: No suspicious bone lesions. Degenerative change LS-spine. Small umb ilical hernia. Assessment of the solid organs, soft tissues, and vascular structures is overall limited on noncontra st imaging, IMPRESSION: 1. 2.6 mm punctate calcification right renal pelvis may represent a nonobstructing calculus versus re nal vascular calcifications 2. 5 x 2.5 cm probable septated cyst upper pole left kidney. Follow-up contrast enhanced CT/MRI for f urther workup as clinically directed 3. Fatty atrophy of the pancreas 4. Small umbilical hernia Dictated by: Refugio Dowd MD on 10/23/2019 3:13 PM. .
[2019-10-23] MEDS ORDERED: DIPHENHYDRAMINE HCL 50 MG/ML VIAL IVP ONE (15:57)
[2019-10-23] MEDS ORDERED: METHYLPREDNISOLONE PF 125MG/VIAL IVP ONE (15:57)
--- NOTE | 2019-10-23 17:40 | CT SCAN REPORT ---
EXAMINATION: CT Abdomen and Pelvis with IV Contrast EXAM DATE: 10/23/2019 5:14 PM TECHNIQUE: CT imaging of the abdomen and pelvis was performed with intravenous contrast. Coronal and sagittal images were reconstructed. IV Contrast: The amount and type of contrast are recorded in the medical record. INDICATION: hematuria COMPARISON: AP CT 10/23/2019 ENCOUNTER: Not applicable CT ABDOMEN AND PELVIS FINDINGS: Lung Bases: Included extent of the lung bases are clear. Hepatobiliary: The liver has a normal size with a smooth surface. The hepatic and portal veins appear patent. Normal gallbladder Pancreas: Fatty atrophy Spleen: The spleen is not enlarged. Adrenals: The adrenal glands are normal. Kidneys, Ureters, & Bladder: Right renal vascular calcification. 5 x 2.8 x 2.3 cm multilocular hypode nse mass upper pole left kidney measuring greater than 20 Hounsfield units on the postcontrast study. 9 mm hypodensity lower pole left kidney too small to characterize. Follow-up contrast enhanced MRI f or further characterization as clinically directed. No obstructive uropathy. Both ureters have a nor mal caliber and the urinary bladder is unremarkable. Gastrointestinal: The stomach and small bowel are normal with no obstruction or inflammation. Normal appendix. The large bowel is normal. Reproductive Organs: Unremarkable Lymphatic System: There is no adenopathy within the abdomen or pelvis. Vasculature: Normal caliber abdominal aorta. Peritoneum: No free fluid, free air, or inflammation Abdominal Wall & Musculoskeletal: No suspicious bone lesions. Small umbilical hernia IMPRESSION: 1. 5 x 2.8 x 2.3 cm indeterminate multilocular hypodense mass upper pole left kidney measuring greate r than 20 Hounsfield units. No septal enhancement. Follow-up contrast enhanced MRI for further workup as clinically directed. Subcentimeter hypodensity lower pole left kidney too small to characterize 2. Right renal vascular calcification 3. Fatty atrophy of the pancreas 4. Small umbilical hernia NOTE: There is a follow-up recommendation in this report. Dictated by: Refugio Dowd MD on 10/23/2019 5:28 PM. .
--- NOTE | 2019-10-24 17:50 | Emergency Department Record ---
History of Present Illness - General Chief complaint: Male Urogenital Problem Stated complaint: PEEING BLOOD Time Seen by Provider: 10/23/19 13:02 Source: Patient Mode of Arrival: Ambulatory Limitations: No limitations - History of Present Illness Initial comments: pt has been urinating blood Onset/Timin -: Days(s) Consistency: Intermittent Improves with: None Worsens with: Urination Reports: Blood in urine - Related Data Previous Rx's Medication Instructions Recorded Sucralfate [Carafate] 1 g PO QID #200 udc 12/16/16 Hydrocodone/Acetaminophen [[place] 1 tab PO Q6H PRN #25 tab 04/02/17 5mg/325mg] Lidocaine Patch [Lidoderm] 1 ea TOP Q12H #14 patch 04/02/17 Allergies Allergy/AdvReac Type Severity Reaction Status Date / Time Iodine and Iodide Containing Allergy HYPERSENSIT Verified 10/23/19 12:49 Produc IVITY meperidine [From Demerol] Allergy PT UNSURE Verified 10/23/19 12:49 OF REACTION morphine Allergy PT UNSURE Verified 10/23/19 12:49 OF REACTION Travel Screening - Travel/Exposure Within Last 30 Days Have you traveled within the last 30 days?: No Review of Systems Reviewed: No additional complaints except as noted below Constitutional: Reports: As per HPI. Denies: Chills, Fever, Malaise, Night sweats, Weakness, Weight change Eyes: Reports: As per HPI. Denies: Eye discharge, Eye pain, Photophobia, Vision change ENT: Reports: As per HPI. Denies: Congestion, Dental pain, Ear pain, Epistaxis, Hearing loss, Throat pain Respiratory: Reports: As per HPI. Denies: Cough, Dyspnea, Hemoptysis, Stridor, Wheezes Cardiovascular: Reports: As per HPI. Denies: Arrhythmia, Chest pain, Dyspnea on exertion, Edema, Murmurs, Orthopnea, Palpitations, Paroxysmal nocturnal dyspnea, Rheumatic Fever, Syncope Endocrine: Reports: As per HPI. Denies: Fatigue, Heat or cold intolerance, Polydipsia, Polyuria Gastrointestinal: Reports: As per HPI. Denies: Abdominal pain, Constipation, Diarrhea, Hematemesis, Hematochezia, Melena, Nausea, Vomiting Genitourinary: Reports: As per HPI, Hematuria. Denies: Dysuria, Frequency, Incontinence, Retention, Testicular pain, Testicular mass, Urgency Musculoskeletal: Reports: As per HPI. Denies: Arthralgia, Back pain, Gout, Joint swelling, Myalgia, Neck pain Skin: Reports: As per HPI. Denies: Bruising, Change in color, Change in hair/nails, Lesions, Pruritus, Rash Neurological: Reports: As per HPI. Denies: Abnormal gait, Confusion, Headache, Numbness, Paresthesias, Seizure, Tingling, Tremors, Vertigo, Weakness Psychiatric: Reports: As per HPI. Denies: Anxiety, Auditory hallucinations, Depression, Homicidal thoughts, Suicidal thoughts, Visual hallucinations Hematological/Lymphatic: Reports: As per HPI. Denies: Anemia, Blood Clots, Easy bleeding, Easy bruising, Swollen glands Past Medical History - SOCIAL HISTORY Smoking Status: Former smoker Alcohol Use: None Drug Use: None - RESPIRATORY Hx Respiratory Disorders: Yes Hx Pulmonary Embolism: Yes - CARDIOVASCULAR Hx Cardio Disorders: Yes Hx Deep Vein Thrombosis: Yes Hx Hypertension: Yes Comment:: PVD - NEURO Hx Neuro Disorders: No - GI Hx GI Disorders: Yes Hx Reflux: Yes Hx Hiatal Hernia: Yes Comment:: barretts disease - Hx Genitourinary Disorders: No - ENDOCRINE Hx Endocrine Disorders: No - MUSCULOSKELETAL Hx Musculoskeletal Disorders: Yes Hx Back Injury: Yes - PSYCH Hx Psych Problems: Yes Hx Depression: Yes - HEMATOLOGY/ONCOLOGY Hx Hematology/Oncology Disorders: Yes Hx Clotting Problems: Yes (frequent blood clots) Family Medical History Any Significant Family History?: Yes Hx Cancer: Father Hx Heart Disease: Mother, Brother/Sister Physical Exam - General General Appearance: Alert, Oriented x3, Cooperative, Mild distress Limitations: No limitations - Head Head exam: Normal inspection - Eye Eye exam: Normal appearance, PERRL, EOMI Pupils: Normal accommodation - ENT ENT exam: Normal exam, Mucous membranes moist, Normal external ear exam, Normal orophraynx Ear exam: Normal external inspection. negative: External canal tenderness Nasal Exam: Normal inspection. negative: Discharge, Sinus tenderness Mouth exam: Normal external inspection, Tongue normal Teeth exam: Normal inspection. negative: Dental caries Throat exam: Normal inspection. negative: Tonsillar erythema, Tonsillar exudate - Neck Neck exam: Normal inspection, Full ROM. negative: Tenderness - Respiratory Respiratory exam: Normal lung sounds bilaterally. negative: Respiratory distress - Cardiovascular Cardiovascular Exam: Regular rate, Normal rhythm, Normal heart sounds - GI/Abdominal GI/Abdominal exam: Soft, Normal bowel sounds. negative: Tenderness - Rectal Rectal exam: Deferred - exam: Deferred - Extremities Extremities exam: Normal inspection, Full ROM, Normal capillary refill. negative: Tenderness - Back Back exam: Reports: Normal inspection, Full ROM. Denies: Muscle spasm, Rash noted, Tenderness - Neurological Neurological exam: Alert, Normal gait, Oriented X3, Reflexes normal - Psychiatric Psychiatric exam: Normal affect, Normal mood - Skin Skin exam: Dry, Intact, Normal color, Warm Course Vital Signs 10/23/19 10/23/19 10/23/19 12:46 15:55 18:02 Temperature 97.5 F L 97.5 F L Pulse Rate 57 L 54 L Pulse Rate [ 58 L Pulse Ox Probe] Respiratory 20 20 20 Rate Blood Pressure 134/83 143/91 Blood Pressure 128/99 [Right Arm] Pulse Ox 94 L 100 100 Medical Decision Making - Lab Data Result diagrams: 10/23/19 13:05 10/23/19 13:05 Lab Results 10/23/19 10/23/19 10/23/19 Range/Units 12:50 13:05 13:05 WBC 5.5 (4.2-12.2) K/uL RBC 4.74 (4.40-5.70) M/uL Hgb 14.4 (14.0-18.0) gm/dl Hct 43.3 (42.0-52.0) % MCV 91.4 (81-97) fl MCH 30.4 (27-33) pg MCHC 33.3 (32-36) g/dl RDW 12.7 (11.5-14.5) % Plt Count 266 (130-400) K/uL MPV 10.5 H (7.4-10.4) fl Gran % 57.5 (47-80) % Lymphocytes % 29.6 (16-45) % Monocytes % 9.7 H (0-9) % Eosinophils % 2.7 (0-6) % Basophils % 0.5 (0-6) % Absolute Neutrophils 3.14 PT 24.8 H (9.5-12.1) SECONDS INR 2.5 Sodium (136-145) mmol/L Potassium (3.4-4.5) mmol/L Chloride (98-107) mmol/L Carbon Dioxide (22-29) mmol/L Anion Gap (7-16) BUN (8-23) mg/dL Creatinine (0.7-1.2) mg/dL Estimated GFR mL/min Random Glucose (74-109) mg/dL Calcium (8.8-10.2) mg/dL Urine Color Red H Urine Appearance Cloudy Urine pH 7.0 (5.0-8.0) Ur Specific [place] 1.020 (1.002-1.030) Urine Protein 100 mg/dl H (NEGATIVE) Urine Glucose (UA) Negative (NEGATIVE) Urine Ketones Negative (NEGATIVE) Urine Blood Large H (NEGATIVE) Urine Nitrite Negative (NEGATIVE) Urine Bilirubin Small H (NEGATIVE) Urine Urobilinogen 1.0 (0.20 - 1.00) E.U./dL Ur Leukocyte Esterase Negative (NEGATIVE) Urine RBC Too numerous to cnt (NONE SEEN) Urine WBC None seen (0-2/hpf) Ur Epithelial Cells None seen (FEW) Urine Bacteria None seen 10/23/19 Range/Units 13:05 WBC (4.2-12.2) K/uL RBC (4.40-5.70) M/uL Hgb (14.0-18.0) gm/dl Hct (42.0-52.0) % MCV (81-97) fl MCH (27-33) pg MCHC (32-36) g/dl RDW (11.5-14.5) % Plt Count (130-400) K/uL MPV (7.4-10.4) fl Gran % (47-80) % Lymphocytes % (16-45) % Monocytes % (0-9) % Eosinophils % (0-6) % Basophils % (0-6) % Absolute Neutrophils PT (9.5-12.1) SECONDS INR Sodium 137 (136-145) mmol/L Potassium 4.2 (3.4-4.5) mmol/L Chloride 100 (98-107) mmol/L Carbon Dioxide 24.0 (22-29) mmol/L Anion Gap 13.0 (7-16) BUN 24 H (8-23) mg/dL Creatinine 1.1 (0.7-1.2) mg/dL Estimated GFR > 60 mL/min Random Glucose 116 H (74-109) mg/dL Calcium 9.1 (8.8-10.2) mg/dL Urine Color Urine Appearance Urine pH (5.0-8.0) Ur Specific [place] (1.002-1.030) Urine Protein (NEGATIVE) Urine Glucose (UA) (NEGATIVE) Urine Ketones (NEGATIVE) Urine Blood (NEGATIVE) Urine Nitrite (NEGATIVE) Urine Bilirubin (NEGATIVE) Urine Urobilinogen (0.20 - 1.00) E.U./dL Ur Leukocyte Esterase (NEGATIVE) Urine RBC (NONE SEEN) Urine WBC (0-2/hpf) Ur Epithelial Cells (FEW) Urine Bacteria Disposition Disposition: Discharge Clinical Impression: Mass of kidney Hematuria Qualifiers: Hematuria type: gross Qualified Code(s): R31.0 - Gross hematuria Disposition: Home, Self-Care Condition: (1) Good Instructions: Hematuria (ED) Additional Instructions: follow up with dr wood on 10/31. return sooner if worse. Referrals: [facility] [Provider Group] Dane Wood M.D. [MEDICAL DOCTOR] - Forms: Patient Portal Access Quality - Quality Measures Quality Measures: N/A - Blood Pressure Screening Does Patient Have Any of the Following: No Blood Pressure Classification: Hypertensive Reading Systolic Measurement: 143 Diastolic Measurement: 91 Screening for High Blood Pressure: < First Hypertensive BP, F/U Documented > [G8950] First Hypertensive Follow-up Interventions: Follow-up with rescreen GT 1 day and LT 4 weeks.
== END 2019-10-23 18:03 | disposition home or self-care (01) ==
LOC: ER 12:01
DX: N28.89 Other specified disorders of kidney and ureter (principal); R31.0 Gross hematuria; I10 Essential (primary) hypertension; Z79.01 Long term (current) use of anticoagulants; Z87.891 Personal history of nicotine dependence
CPT/HCPCS: 99284 ×2; 96374; 96375; 85025; 85610; 80048; 81001; 74176; 74177; Q9967; J1200; J2930